=== PATIENT | female | born 1945 | race Caucasian/White ===

== ENCOUNTER → 2016-07-24 | Outpatient (CLI) | payer MEDICARE, OTHER ==
[~2016-07-24] MED LIST: ASPI1TAB69 PO; CALC1TAB30 PO; CALC600T34 PO; CELE200 PO; CELE200C PO; CETI10 PO; CIPR500T4 PO; EZET10 PO; FAMO20TA2 PO; FISH1000 PO; FLUT1SPR22 NASAL; GLUC1CAP16 PO; GLUC500C56 PO; LORT5TAB PO; MONT10TA4 PO; MULTTAB24 PO; OMEP20TA PO; PRIL20TA2 PO; RHINSUS; ROSU10 PO; TAB-TAB PO; VITA10004 PO
[2016-07-24 13:37] LABS: AUTOMATED NEUTROPHIL # 3.4 TH/MM3 (1.8-7.7); BASOPHIL % 0.4 % (0.0-2.0); EOSINOPHIL # 0.2 TH/MM3 (0-0.4); EOSINOPHIL % 2.5 % (0.0-4.0); HEMATOCRIT 43.7 % (35.0-46.0); HEMO FLAGS DIFF FINAL; LYMPH % 34.4 % (9.0-44.0); LYMPHOCYTE # 2.1 TH/MM3 (1.0-4.8); MEAN CELL VOLUME 93.6 FL (80.0-100.0); MEAN CORPUSCULAR HEMOGLOBIN 31.9 PG (27.0-34.0); MONO % 8.4 % (0.0-8.0); NEUT % 54.3 % (16.0-70.0); PLATELET COUNT 161 TH/MM3 (150-450); RED BLOOD COUNT 4.67 MIL/MM3 (4.00-5.30); RED CELL DISTRIBUTION WIDTH 13.4 % (11.6-17.2); WHITE BLOOD COUNT 6.2 TH/MM3 (4.0-11.0)
[2016-07-24 15:08] LABS: BLOOD, URINE TRACE (NEG); COMMENT (UR) CULT NOT INDICATED; CULTURE IF INDICATED CULT NOT INDICATED; GLUCOSE,URINE NEG (NEG); KETONE, URINE NEG (NEG); NITRITE,URINE NEG (NEG); SQUAMOUS EPITHELIAL CELL URINE <1 /hpf (0-5); URINE COLOR YELLOW (YELLW/STRAW)
--- NOTE | 2016-07-25 10:50 | EKG ---
Date Performed: 07/24/2016 Time Performed: 13:30:05 PTAGE: 70 years EKG: Sinus rhythm NORMAL ECG Compared to prior tracing no significant change PREVIOUS TRACING 03/07/2005 13.01.10 DOCTOR: Libby Louis Interpretating Date/Time 07/25/2016 10:43:13
== END ==
LOC: CPRE 13:12
PROVIDERS: ATTEND Obstetrics & Gynecology
DX: Z01.810 Encounter for preprocedural cardiovascular examination (principal); Z01.812 Encounter for preprocedural laboratory examination; N95.0 Postmenopausal bleeding
CPT/HCPCS: 36415; 81001; 85025; 93005

== ENCOUNTER → 2016-07-26 | Day surgery (SDC) | payer MEDICARE, OTHER ==
--- NOTE | 2016-07-25 22:32 | MH ---
cc: CHAVA LUIS DATE OF ADMISSION 07/26/2016 ADMISSION DIAGNOSIS Postmenopausal bleeding. HISTORY OF PRESENT ILLNESS The patient is 70-year-old white female para 1-0-0-1 with LMP in 1998. She returned for evaluation on 06/21/2016 reporting clear discharge per vagina with red spotting on 06/15/2016 that was painless. Vaginal ultrasound on 06/27/2016 showed a uterus that measured 4.8 cm, endometrium was 5 mm, ovaries could not be seen. She is now admitted for surgical evaluation. PAST MEDICAL HISTORY/PAST SURGICAL HISTORY 1. In 1999 she had a right breast lumpectomy for breast cancer. She used Tamoxifen for five years 2. D&C hysteroscopy in 2004 for postmenopausal bleeding. MEDICATIONS Will bring in list. ALLERGIES PENICILLIN ENVIRONMENTAL TRANSFUSIONS None. OBSTETRICAL HISTORY One vaginal delivery 1975. SOCIAL HISTORY She is retired and . Alcohol occasional, tobacco and drugs none. FAMILY HISTORY Noncontributory. PHYSICAL EXAMINATION GENERAL: A well-nourished well-developed white female, vital signs stable. HEENT: Exam is normal. CHEST: Clear HEART: Regular rate BREASTS: Symmetrical. No mass or discharge, right side post mst8 changes. ABDOMEN: benign. PELVIC: Vagina Atrophic. The cervix small. Uterus normal size, shape anterior, no adnexal masses. ASSESSMENT She is now admitted for outpatient hysteroscopy dilation and curettage. PLAN While in the office, I explained the procedure, the risk, benefits and complications. The patient would like to proceed. MD KEYLA Sarmiento/ /10:02 PM /10:20 PM CANDICE
[~2016-07-26] VITALS: Ht 154.9 cm; Wt 73.1 kg
[~2016-07-26] MED LIST changes: +*morphine SULFATE 8 MG/ML PERIprocedure ONLY ONE; +ACETAMINOPHEN 1000 MG/100 ML VIAL IV ONE; -CALC600T34 PO; -CELE200 PO; -CIPR500T4 PO; +DEXAMETHASONE SOD PHOS 4 MG/ML VIAL ONE; +DO NOT ADM ANY ANTICOAGULANT DRUGS PRN; -EZET10 PO; -GLUC500C56 PO; +KETOROLAC TROMETHAMINE 60 MG/2 ML (IM) VIAL IM ONE; -LORT5TAB PO; +METOCLOPRAMIDE HCL 10 MG/2 ML VIAL IV PRN; +MIDAZOLAM HCL 2 MG/2 ML VIAL ONE; +ONDANSETRON HCL 4 MG/2 ML VIAL IV PUSH ONE; -PRIL20TA2 PO; +PROPOFOL 200 MG/20 ML AMP IV ONE; -RHINSUS; -TAB-TAB PO; +fentaNYL CITRATE 250 MCG/5 ML AMP ONE
[2016-07-26 06:05] VITALS: BP 137/70; PULSE 68; RESP 16; TEMP 97.9; O2SAT 97
[2016-07-26 09:10] VITALS: BP 140/66; PULSE 64; RESP 18; TEMP 97; O2SAT 99
--- NOTE | 2016-07-28 09:25 | MP ---
cc: CHAVA LUIS DATE OF SURGERY 07/26/2016 PREOPERATIVE DIAGNOSIS Postmenopausal bleeding. POSTOPERATIVE DIAGNOSES Postmenopausal bleeding. Endometrial polyps. PROCEDURE Hysteroscopy, D&C. ANESTHESIA General LMA. ESTIMATED BLOOD LOSS Less than 5 cc. FLUIDS About 300 cc crystalloid. OBJECTIVE FINDINGS Following the induction of adequate general LMA anesthesia, the patient was prepped and draped supine on the operating room table in the dorsal lithotomy position in the usual sterile fashion with the bladder being drained via in and out catheterization. Exam under anesthesia revealed a normal sized and shaped anterior uterus with no descent. Adnexal nonpalpable. The cervix was exposed with hand-held retractors, grasped in the anterior lip with a single-tooth tenaculum. The cervix and uterus sounded to 8 cm with a soft, atraumatic dilator and dilated to #18 Hanks dilator. The hysteroscope was passed, revealed a normal endocervix. Endometrium with polyps. The endocervix was curetted with a small serrated curet, the endometrium with a small, sharp curet and polyp forceps passed to remove the polyps. All instruments were removed. All counts were correct. The patient's legs were taken down from the stirrups. She was awakened and taken to the recovery room in good condition. MD KEYLA Sarmiento/SSB /7:54 AM /9:19 AM
== END | disposition home or self-care (01) ==
LOC: HSDC 05:23
PROVIDERS: ATTEND Obstetrics & Gynecology
DX: N84.0 Polyp of corpus uteri (principal); N95.0 Postmenopausal bleeding; Z85.3 Personal history of malignant neoplasm of breast; Z88.0 Allergy status to penicillin
CPT/HCPCS: 00952; 58558; 88305; J0131; J1100; J1885; J2250; J2270; J2405; J3010